=== PATIENT | female | born 2005 | race Two or more races ===

== ENCOUNTER 2023-09-24 00:44 | Emergency (ER) | payer MEDICAID, OTHER ==
[~2023-09-24] VITALS: Ht 157.5 cm; Wt 80.0 kg
[2023-09-24 01:00] VITALS: BP 101/65; PULSE 71; RESP 18; TEMP 97.8; O2SAT 98
[2023-09-24 01:19] LABS: Urine Bacteria None Seen /hpf (None Seen)
[2023-09-24 01:38] LABS: Urine Blood Negative /uL (Negative); Urine Clarity Clear (Clear); Urine Color Light-Yellow (Yellow); Urine Protein, UAD Negative (Negative); Urine Specific Gravity 1.022 (1.001-1.035); Urine Urobilinogen Normal (Negative); Urine WBC <1 /hpf (0 - 5)
[2023-09-24] MEDS: KETOROLAC TROMETH 30 MG/ML 1ML VIAL IM ONE (03:16)
== END 2023-09-24 05:08 | disposition home or self-care (01) ==
LOC: ER 00:44
DX: M54.50 Low back pain, unspecified (principal)
CPT/HCPCS: 72131; 81001; 96372; 99285; J1885